=== PATIENT | male | born 1975 ===

== ENCOUNTER 2017-05-23 16:48 | Emergency (ER) | payer SELFPAY ==
[2017-05-23 17:02] VITALS: PULSE 58; RESP 16; TEMP 97.9; O2SAT 98
--- NOTE | 2017-05-23 17:48 | ED PDOC ---
Lower Extremity Pain/Injury Time Seen by Provider: 05/23/17 17:19 Chief Complaint (Nursing): Lower Extremity Problem/Injury Chief Complaint (Provider): Lt foot pain History Per: Patient History/Exam Limitations: no limitations Onset/Duration Of Symptoms: Days, Worse Since (2 days) Current Symptoms Are (Timing): Still Present Additional History Per: Patient Additional Complaint(s): The patient is a 41yo male, presents to the ED for evaluation of left foot pain , present for the past week but worse over the past 2 days. Patient denies any trauma or injury to his foot. He denies any numbness, tingling, weakness. He offers no additional medical complaints. Past Medical History Reviewed: Historical Data, Nursing Documentation, Vital Signs Vital Signs: Last Vital Signs Temp 97.9 F 05/23/17 16:58 Pulse 58 L 05/23/17 16:58 Resp 16 05/23/17 16:58 BP Pulse Ox 98 05/23/17 16:58 - Medical History PMH: No Chronic Diseases - Surgical History Surgical History: No Surg Hx - Family History Family History: States: No Known Family Hx, Unknown Family Hx - Social History Current smoker - smoking cessation education provided: No Alcohol: None Drugs: Denies - Home Medications Home Medications: Ambulatory Orders Medication Instructions Recorded Fexofenadine/Pseudoephedrine 1 each PO BID #10 tab.er.12h 04/17/16 [Maki-D 12 Hour Tablet] Azithromycin [Zithromax] 250 mg PO DAILY #6 tab 10/12/16 Benzonatate 200 mg PO TID PRN #20 capsule 10/12/16 Fluticasone Nasal [Flonase] 1 spray NS DAILY #1 bottle 10/12/16 Ibuprofen [Motrin Tab] 800 mg PO Q6H PRN #20 tab 05/23/17 - Allergies Allergies/Adverse Reactions: Allergies Allergy/AdvReac Type Severity Reaction Status Date / Time No Known Allergies Allergy Verified 03/25/16 10:31 Review of Systems Musculoskeletal: Positive for: Foot Pain (left) Neurological: Negative for: Weakness, Numbness Physical Exam - Reviewed Nursing Documentation Reviewed: Yes Vital Signs Reviewed: Yes - Physical Exam Appears: Positive for: Non-toxic, No Acute Distress Head Exam: Positive for: ATRAUMATIC, NORMAL INSPECTION, NORMOCEPHALIC Skin: Positive for: Warm Neck: Positive for: Supple Cardiovascular/Chest: Positive for: Regular Rate, Rhythm Respiratory: Negative for: Respiratory Distress Pulses-Dorsalis Pedis (L): 2+ Extremity: Positive for: Normal ROM, Tenderness (tenderness to left cuboid), Capillary Refill (< 2 secs). Negative for: Deformity, Swelling Neurologic/Psych: Positive for: Alert, Oriented - ECG O2 Sat by Pulse Oximetry: 98 (RA) Pulse Ox Interpretation: Normal Medical Decision Making Medical Decision Making: Time: 1710 Impression: Left foot pain Plan: -- XR left foot -- Motrin 600 Reassess No acute fracture or dislocation seen on x-ray Scribe Attestation: Documented by Ginny Michael acting as a scribe for AMY Shane Provider Attestation: All medical record entries made by the Scribe were at my direction and personally dictated by me. I have reviewed the chart and agree that the record accurately reflects my personal performance of the history, physical exam, medical decision making, and the department course for this patient. I have also personally directed, reviewed, and agree with the discharge instructions and disposition. Disposition - Clinical Impression Clinical Impression: Foot pain - Patient ED Disposition Is Patient to be Admitted: No Counseled Patient/Family Regarding: Diagnosis, Need For Followup - Disposition Referrals: [facility]iatry Clinic [Outside] Disposition: Routine/Home Disposition Time: 18:26 Condition: GOOD Prescriptions: Ibuprofen [Motrin Tab] 800 mg PO Q6H PRN #20 tab PRN Reason: Pain Instructions: Arthralgia (ED) Forms: [employer] (Kenyan) Print Language: SERBIAN
--- NOTE | 2017-05-24 10:11 | RAD ---
PROCEDURE: Left Foot Radiographs. HISTORY: left foot pain, cuboid tenderness, no trauma COMPARISON: None. FINDINGS: BONES: Normal. No fracture. JOINTS: Normal. SOFT TISSUES: Normal. OTHER FINDINGS: None. IMPRESSION: No evidence of acute fracture or dislocation.
== END 2017-05-23 18:40 | disposition home or self-care (01) ==
LOC: H.ER 16:48
DX: M79.672 Pain in left foot (principal)

== ENCOUNTER 2018-11-10 11:51 | Emergency (ER) | payer OTHER ==
[2018-11-10 12:04] VITALS: TEMP 98.5
--- NOTE | 2018-11-10 12:31 | ED PDOC ---
HPI: Back Time Seen by Provider: 11/10/18 12:13 Chief Complaint (Nursing): Back Pain Chief Complaint (Provider): Back Pain History Per: Patient History/Exam Limitations: no limitations Onset/Duration Of Symptoms: Days (x3 weeks) Current Symptoms Are (Timing): Still Present Additional Complaint(s): Patient is a 43 y/o male with no significant PMHx who presents to the ED for evaluation of right-sided back pain ongoing for the past three weeks. Patient states the pain began gradually three weeks ago and recently started radiating down the back of his right leg. Patient complains of occasional numbness and tingling. Patient denies a history of back problems, fever, chills, weakness of right leg, and fecal or urinary incontinence. Patient reports he has been taking Tylenol intermittently with no relief. Of note, patient works in construction. PCP: None Provided Past Medical History Reviewed: Historical Data, Nursing Documentation, Vital Signs Vital Signs: Last Vital Signs Temp 98.5 F 11/10/18 12:01 Pulse 67 11/10/18 12:01 Resp 19 11/10/18 12:01 BP 103/64 11/10/18 12:01 Pulse Ox 100 11/10/18 12:01 - Medical History PMH: No Chronic Diseases - Surgical History Surgical History: No Surg Hx - Family History Family History: States: Unknown Family Hx - Home Medications Home Medications: Ambulatory Orders Medication Instructions Recorded Fexofenadine/Pseudoephedrine 1 each PO BID #10 tab.er.12h 04/17/16 [Maki-D 12 Hour Tablet] Azithromycin [Zithromax] 250 mg PO DAILY #6 tab 10/12/16 Benzonatate 200 mg PO TID PRN #20 capsule 10/12/16 Fluticasone Nasal [Flonase] 1 spray NS DAILY #1 bottle 10/12/16 Ibuprofen [Motrin Tab] 800 mg PO Q6H PRN #20 tab 05/23/17 Cyclobenzaprine [Cyclobenzaprine 10 mg PO Q8 PRN 5 Days tab 11/10/18 HCl] Ibuprofen [Motrin Tab] 600 mg PO Q6 PRN 7 Days tab 11/10/18 - Allergies Allergies/Adverse Reactions: Allergies Allergy/AdvReac Type Severity Reaction Status Date / Time No Known Allergies Allergy Verified 03/25/16 10:31 Review of Systems ROS Statement: Except As Marked, All Systems Reviewed And Found Negative Constitutional: Negative for: Fever, Chills, Weakness (of Right Leg) Gastrointestinal: Negative for: Other (fecal incontinence) Genitourinary Male: Negative for: Incontinence (urinary) Musculoskeletal: Positive for: Back Pain (Right-Sided), Leg Pain (Right; Back Side) Neurological: Positive for: Numbness (and Tingling Occasionally) Physical Exam - Reviewed Nursing Documentation Reviewed: Yes Vital Signs Reviewed: Yes - Physical Exam Appears: Positive for: Uncomfortable Head Exam: Positive for: ATRAUMATIC, NORMAL INSPECTION, NORMOCEPHALIC Pulses-Dorsalis Pedis (L): 2+ Pulses-Dorsalis Pedis (R): 2+ Back: Positive for: Normal Inspection (with tenderness to palpation of right lower back and buttock), Decreased ROM (of back and right hip due to pain on flexion). Negative for: Other (ecchymosis, erythema, or swelling) Extremity: Positive for: Normal ROM (on flexion and extension of knee and ankle), Capillary Refill (less then 2 seconds) Neurological/Psych: Positive for: Alert, Oriented - ECG O2 Sat by Pulse Oximetry: 100 (RA) Pulse Ox Interpretation: Normal Medical Decision Making Medical Decision Making: Time: 1225 Impression: Sciatica Plan: - Toradol 30 mg IM (x1) - Patient will be driving home, therefore, will be given prescription for Flexeril as opposed to treatment in the ED. - Sciatica discussed with patient who understands full improvement will take time. Scribe Attestation: Documented by Yair Ernandez, acting as a scribe for AMY Rojas Provider Scribe Attestation: All medical record entries made by the Scribe were at my direction and personally dictated by me. I have reviewed the chart and agree that the record accurately reflects my personal performance of the history, physical exam, medical decision making, and the department course for this patient. I have also personally directed, reviewed, and agree with the discharge instructions and disposition. Disposition - Clinical Impression Clinical Impression: Sciatica - Patient ED Disposition Is Patient to be Admitted: No Counseled Patient/Family Regarding: Diagnosis, Need For Followup, Rx Given - Disposition Referrals: [facility] [Outside] Disposition: Routine/Home Disposition Time: 13:49 Condition: STABLE Additional Instructions: Take Ibuprofen and Cyclobenzaprine as needed for pain. Avoid taking Cyclobenzaprine (Flexeril) if you will be driving or operating heavy machinery as it may make you sleepy. Return to ER if you have weakness in the right leg or are unable to control your bowel or control your urine. Prescriptions: Cyclobenzaprine [Cyclobenzaprine HCl] 10 mg PO Q8 PRN 5 Days tab PRN Reason: Muscle Spasm Ibuprofen [Motrin Tab] 600 mg PO Q6 PRN 7 Days tab PRN Reason: Pain, Moderate (4-7) Instructions: Sciatica (DC), Sciatica Exercises Forms: [employer] (Indian), [facility] ED School/Work Excuse Print Language: MALTESE
[2018-11-10 13:51] VITALS: BP 112/69; PULSE 55; RESP 18
[2018-11-10 22:13] VITALS: O2SAT 100
== END 2018-11-10 13:49 | disposition home or self-care (01) ==
LOC: H.ER 11:51
DX: M54.31 Sciatica, right side (principal)
CPT/HCPCS: 96372; 99283; J1885